=== PATIENT | female | born 1985 | race Caucasian/White ===

== ENCOUNTER 2017-09-09 01:52 | Emergency (ER) | payer OTHER ==
[~2017-09-09] VITALS: Ht 170.2 cm; Wt 121.1 kg
[2017-09-09 02:00] VITALS: Ht 170.2 cm; Wt 121.1 kg
[2017-09-09 03:34] LABS: BASOPHIL % 0.2 % (0-2)
[2017-09-09 03:42] LABS: PLATELET COUNT 429 x10^3mcL (130-400); RED CELL DISTRIBUTION WIDTH 15.8 % (11.5-14.5)
[2017-09-09 04:38] VITALS: BP 162/89
== END 2017-09-09 04:44 | disposition home or self-care (01) ==
LOC: ED 01:52
PROVIDERS: Emergency Medicine
DX: O99.512 Diseases of the respiratory system complicating pregnancy, second trimester (principal); J98.01 Acute bronchospasm; F17.200 Nicotine dependence, unspecified, uncomplicated; I10 Essential (primary) hypertension; Z3A.15 15 weeks gestation of pregnancy
CPT/HCPCS: 36415; 99406; J7512; J7613